=== PATIENT | female | born 1980 | race African-American/Black ===

== ENCOUNTER 2017-06-24 05:43 | Emergency (ER) | payer OTHER, MEDICAID ==
[~2017-06-24] VITALS: Ht 160 cm; Wt 86.0 kg
[2017-06-24 08:43] LABS: CLARITY URINE CLOUDY (CLEAR); COLOR URINE DARK YELLOW (YELLOW); GLUCOSE URINE NEGATIVE (NEGATIVE); KETONES URINE 1+ (NEGATIVE); LEUKOCYTE ESTERASE URINE TRACE (NEGATIVE); NITRITE URINE NEGATIVE (NEGATIVE); OCCULT BLOOD URINE TRACE (NEGATIVE); PH URINE 5.5 (4.5-8.0); PROTEIN URINE 1+ (NEGATIVE); SPECIFIC GRAVITY URINE 1.045 (1.005-1.030)
[2017-06-24] MEDS ORDERED: SODIUM CHLORIDE 0.9% 1,000 ML IV ONE (09:51)
[2017-06-24] MEDS ORDERED: ONDANSETRON HCL 4MG/2ML VIAL IV STA ×2 (09:51→11:52)
[2017-06-24] MEDS ORDERED: MORPHINE SULFATE 4 MG/ML CPJ (NOT FOR IM USE) IV ONE (10:00)
[2017-06-24 10:07] LABS: BASOPHILS % 0.3 % (0.0-2.0); HEMATOCRIT. 37.3 % (36.0-48.0); HEMOGLOBIN. 12.4 g/dL (12.0-16.0); MEAN CORPUSCULAR HEMOGLOBIN 27.4 pg (28.0-32.0); MEAN CORPUSCULAR VOLUME 82.5 fL (81.0-99.0); MEAN PLATELET VOLUME 8.6 fl (7.4-10.4); MONOCYTES % 4.3 % (2.0-8.0); NEUTROPHILS % 85.4 % (40.0-76.0); PLATELET 274 x1000/uL (130-400); RED BLOOD CELL COUNT 4.52 mill/uL (4.2-5.4); RED CELL DISTRIBUTION WIDTH 15.8 % (11.6-14.6)
[2017-06-24 10:12] LABS: CHLORIDE 99 mEq/L (98-107)
[2017-06-24 10:28] LABS: CARBON DIOXIDE 24 mEq/L (21-32); ETHANOL BLOOD < 10 mg/dL
[2017-06-24 10:40] LABS: B-HCG QUANTITATIVE 3365 mIU/mL (<3)
[2017-06-24] MEDS ORDERED: ACETAMINOPHEN 500MG TABLET PO ONE (12:00)
[2017-06-24 12:59] VITALS: BP 128/76
[2017-06-24 15:27] LABS: *AMPHETAMINES SCREEN URINE NEGATIVE (NEGATIVE); *BARBITURATES SCREEN URINE NEGATIVE (NEGATIVE); *BENZODIAZEPINES SCREEN URINE NEGATIVE (NEGATIVE); *COCAINE SCREEN URINE NEGATIVE (NEGATIVE); METHADONE URINE SCREEN NEGATIVE (NEGATIVE); OPIATES URINE SCREEN NEGATIVE (NEGATIVE); PHENCYCLIDINE URINE SCREEN NEGATIVE (NEGATIVE)
[2017-06-24 15:31] LABS: CANNABINOID URINE SCREEN PRESUMTIVE POSITIVE (NEGATIVE)
== END 2017-06-24 13:18 | disposition home or self-care (01) ==
LOC: ER 05:43
DX: O20.0 Threatened abortion (principal); K29.00 Acute gastritis without bleeding; R10.9 Unspecified abdominal pain; O23.40 Unspecified infection of urinary tract in pregnancy, unspecified trimester; Z3A.00 Weeks of gestation of pregnancy not specified
CPT/HCPCS: 36415; 76801; 76817; 80053; 80305; 81001; 81025; 83690; 84702; 85025; 96361; 96374; 96375; 96376; 99285; G0482; J2270; J2405; J7030